=== PATIENT | female | born 1995 | race Caucasian/White ===

== ENCOUNTER 2021-05-28 19:07 | Emergency (ER) | payer OTHER ==
[~2021-05-28] VITALS: Ht 172.7 cm; Wt 83.9 kg
--- NOTE | 2021-05-28 19:30 | NUR ---
BIBRA 878 WITH CC OF DISCOMFORT IN URINATION AND BIZAARE BEHAVIOR V/S CHECKED AND RECORDED NO SOB NOTED SPO2 100% ON ROOM AIR WILL CONT TO MONITOR
--- NOTE | 2021-05-28 20:02 | NUR ---
URINE COLLECTED AND SENT TO LAB.
[2021-05-28 20:28] LABS: BILIRUBIN,URINE NEGATIVE (NEGATIVE); COLOR,URINE YELLOW (YELLOW); LEUKOCYTE ESTERASE ,URINE SMALL (NEGATIVE); NITRITE, URINE NEGATIVE (NEGATIVE); PH,URINE 6.5 (5.0-8.0); PROTEIN,URINE 30 mg/dl (NEGATIVE); UGLUCOSE NEGATIVE (NEGATIVE); UROBILINOGEN,URINE 0.2 EU/dL (0.2)
[2021-05-28 20:37] LABS: BACTERIA,URINE None seen /HPF (None Seen); HYALINE CASTS, URINE Few /LPF (None Seen); RBC,URINE 0-2 /HPF (0-2); SQUAMOUS EPITHELIAL CELL,UR Few /HPF (None Seen); URINE AMORPHOUS URATE Few /HPF (None Seen)
[2021-05-28 22:05] LABS: BASOPHILS # (AUTO) 0.1 K/uL (0.0-0.2); BASOPHILS % (AUTO) 0.4 % (0.0-2.0); EOSINOPHILS % (AUTO) 0.2 % (0.0-6.0); HEMATOCRIT 42 % (33-45); HEMOGLOBIN 14.2 g/dL (11.5-14.8); LYMPHOCYTES # (AUTO) 1.9 K/uL (0.8-4.8); LYMPHOCYTES % (AUTO) 13.4 % (20.0-44.0); MEAN CORPUSCULAR HGB CONC 34 g/dl (31.0-36.0); MEAN CORPUSCULAR VOLUME 89 fL (82-100); MONOCYTES # (AUTO) 1.1 K/uL (0.1-1.30); MONOCYTES % (AUTO) 7.9 % (2.0-12.0); NEUTROPHILS # (AUTO) 10.9 K/uL (1.8-8.9); NEUTROPHILS % (AUTO) 78.1 % (43.0-81.0); PLATELET COUNT (AUTO) 292 K/uL (150-450); RED BLOOD CELL COUNT(AUTO) 4.75 MIL/uL (4.0-5.2); WHITE BLOOD COUNT (AUTO) 13.9 K/uL (4.3-11.0)
[2021-05-28 22:19] LABS: CALCIUM, SERUM 9.5 mg/dL (8.5-10.1); CREATININE 0.8 mg/dL (0.6-1.3); POTASSIUM 2.9 mmol/L (3.5-5.1)
[2021-05-28 22:21] LABS: ACETAMINOPHEN < 2 ug/ml (10-30); ALCOHOL, BLOOD < 3 mg/dL (0-0)
[2021-05-28 22:24] LABS: BILIRUBIN,DIRECT 0.1 mg/dL (0.0-0.2); BILIRUBIN,TOTAL 0.3 mg/dL (0.2-1.0); TOTAL PROTEIN, SERUM 7.8 g/dL (6.4-8.2)
[2021-05-28] MEDS ORDERED: CEPHALEXIN MONOHYDRATE 500 MG CAPSULE PO ONE ×2 (22:30→22:36)
[2021-05-28] MEDS ORDERED: POTASSIUM CHLORIDE 20 MEQ TAB.PRT.SR PO ONE ×2 (22:30→22:36)
[2021-05-28] MEDS ORDERED: CEPH500C2 PO (23:21)
--- NOTE | 2021-05-28 23:26 | NUR ---
COVID SWAB DONE AND SENT TO LAB
--- NOTE | 2021-05-28 23:45 | NUR ---
DORR CRISIS TEAM AT BEDSIDE FOR EVAL.
[2021-05-29] MEDS ORDERED: OLANZAPINE 10 MG VIAL IM ONE ×2 (00:09→00:30)
--- NOTE | 2021-05-29 00:55 | NUR ---
ANAI GUEVARA ([facility]) [phone]
--- NOTE | 2021-05-29 08:59 | NUR ---
SERVICE ADMINISTRATOR "WILL SEE THE PATIENT AFTER THE MEETING".
--- NOTE | 2021-05-29 09:17 | NUR ---
clinicals faxed to Mark Hou at [phone] as requested by Laurie
--- NOTE | 2021-05-29 09:46 | NUR ---
FAXED CLINICALS TO [facility] IN [place] AT [phone] PER SILKE
--- NOTE | 2021-05-29 09:49 | NUR ---
SPOKE TO PATIENTS KB ANAI AND SHE REQUESTED TO BE NOTIFIED IF PT WAS TO BE RELEASED OR TRANSFERRED TO ANOTHER FACILITY
--- NOTE | 2021-05-29 11:59 | NUR ---
SW called [facility] in [place] and spoke to intake and they stated they have no opne beds for today.
[2021-05-29 12:00] VITALS: BP 134/75
--- NOTE | 2021-05-29 12:01 | NUR ---
KOURTNEY called [facility] tel:[phone] and intake stated they have no bed availability for today.
--- NOTE | 2021-05-29 12:22 | NUR ---
KOURTNEY ENAMORADO AT BEDSIDE TALKING TO THE PATIENT
--- NOTE | 2021-05-29 12:42 | NUR ---
SS Note: SW met with pt at bedside. The pt. is a 25 year old female on a 5150 hold for DTS.Per EMR. pt. is currently . Pt. is alert & oriented x 3 and bizarre. Pt. appears unkempt, with dysphoric mood & flat affect. Pt. has slow low speech. Pt. is confused at times. Pt. is manipulative and providing contradictory information. Pt. stated she would like to be discharged to home. Pt. states she "lives here at the hospital" and stated she cannot return home with her mother. Pt. stated she has intermittent SI and visual / auditory halucinations. Pt. denies HI. SW explored pt.'s drug and alcohol use. Pt. stated she drinks alcohol 2x/ week and uses drugs "sometimes". Pt. presents guarded and did not want to specify drug use. Pt. tox screen shows Cannabinoid use. KOURTNEY provided education to pt. regardign if pt.'s child test positive fro drugs upon delivery, the child may be taken away from her custody. Pt. expressed understanding and stated, all the hard drug use was done prior to this . KOURTNEY provided pt. with AND RESOURCES and pt. accepted them. KOURTNEY also provided pt. with addiction, and mental health resources and pt. accepted them. KOURTNEY discussed with Dr. Zapien. KOURTNEY khalil insurance and benefits clerkLouise [phone] to discuss pt.'s current behavior, pending psych admission and stabilization through medication. Ivonne stated she will call Dr. Michele to consult regarding medicating pt. and will discuss with ED MD. Noted. SW will remain available. /INFANT CARE: [facility] Support [place] office [phone] [phone] Care.com - all types of support [facility] Home [phone] PREPARED CHILDBIRTH: [phone] [facility] SUBSTANCE ABUSE SUPPORT: [phone] Via [phone] [facility] MATERNITY HOUSING: [place] (teens) 18 years + [phone] R[facility]hi[facility] [phone] [facility] [phone] PARENTING CLASSES: [facility] [address] [phone] Friends of the [phone] [phone] [place] [facility] [place] Program Child/Family Center in [facility] PATERNITY TESTING: [phone] [facility] [phone] [facility] Parvez. [facility] Energy Operations Vice President Offices www.Multistory Learning.Novaliq ADOPTION: [phone] Adoption Network Law [place] [facility] Services [facility] Family [facility] Tamms [phone] Iesha Barnes Adoption BREAST FEEDING: [phone] La Leche [phone] Nursing Meat Pumper - Mobile Service The Pump Connection [facility] BOARDING SPECIALIST: Child Resource Center [facility] Preschool LAUP.net [facility] CHILD SUPPORT: [facility] www.cssd.[facility].gov [phone] www.childsup.[place].gov OTHER RESOURCES: MEND - provides food, clothing, furniture, medical care, etc., to families and children living in the [facility]. [facility] Family [facility] Family Rescue Cent. Safety Belt USA- car seat discounts Multiples of Ade Support www.nomotc.org Food Pantries www.Cro Yachting.org www.Beauty Worksty.org Cord Banking: http://americanpreVirtustreamancy.org/nlcug-bhd-fduxw/mtri-ywftw-jliaymx/ ADDICTION RESOURCES For Drugs and Alcohol [facility] Substance Abuse Helpline([place])-[facility] Outpatient treatment, residential treatment, recovery support for youth and adults [facility] www.NovusfaPinevio [facility] Teen programs for drug/alcohol education and support [facility] [place]. Program for adults, sliding scale provides support and education Mere Exogenesis www.Any+Times.org [place]; Outpatient/residential treatment programs; transition to sober living Cri-Help www.cri-help.org [place]; Outpatient and residential treatment programs; transition to sober living I-ADARP Inter Agency Drug Abuse Recovery Jesus Gomes; Outpatient education and supportive programs for teens and adults [facility] www.oasiswomensrecovery.org [place]; Residential treatment and work program for females only Carmel Lodi www.phocity hospitalxwashburn.org [place]: Outpatient/residential treatment program for teens and young adults [facility] [place] www.[facility].org [place] Detox, inpatient, outpatient for adults and youth [facility]'s [place], [facility]. [place]; Outpatient programs and referrals to community residential programs. Alcoholics Anonymous -sfv information and meeting and schedules www.aa-intergroup.org Wc-Gwbv-Hnecjmt https://al-anon.org/ [place] support groups for family of alcoholics. Marijuana Anonymous www.madistrict6.org -SFV listing of meetings Narcotics Anonymous www.na.org SOBER LIVING RESOURCES The Sober Living Network www.soberhouIncentOne.PlusBlue Solutions A non-profit agency that provides resources to recovery and sober living homes throughout [place], [place], [facility] Men's Sober Living Homes: A Work in Progress, Jennifer [facility] Recovery Advocates, [place] [facility] Women's Sober Living Homes: [facility] x [phone] [place], [place] [facility] Coed Sober Living Homes: [facility] Counseling--Outpatient [facility] [address] [place] [address] (Specializes in in-depth psychotherapy for emotional distress: anxiety, depression, interpersonal conflicts, life transitions, childhood abuse) [facility] [address] [place] [address] (Assist with solving problem marital difficulties, separation & divorce, aging parents, & grief, chronic & terminal illness) [facility] [address] [place] [address] (Deal with loss & grief, anxiety, marital difficulties) Homebound/Mental Health Services [address] [place], [place] [address] (Provide in-home mental services to people who are incapable of leaving their homes) Organization for Needs of the Elderly Senior Service/Resource Center [address] [place] [address] [facility] [address] [place] [address] Mental Health Services Bree Ko [address] [place] [address] Services: Outpatient therapy for children, teens, young adults, adults, older adults, and families; Psychiatric services, medication support Psychiatric Outpatient Services [facility] Partial Hospitalization and Intensive Outpatient Program (Managed Care and [place] Only)[address] [facility] [phone] [facility] Partial Hospitalization and Outpatient [id number] [facility] [address] [place], [place] [phone] [facility] Partial Hospitalization and Outpatient Lhaxclr8285 [place], [place] [phone] [facility] Mental Health [place] [id number] [facility] [address] [place], [place] [phone] [facility] Partial Hospitalization and Outpatient [id number] [place], [phone] Crisis and Hotline Telephone Numbers 24-Hour service unless stated [place] Crisis Hotlines: [facility] Mental Health/Crisis Line........628.555.6856 Suicide Prevention Center (24 Hours).......647.373.9289 Suicide Prevention Crisis Center.......713.311.4883 (24 Hours) Assaults Against Women Hotline.........716.484.4368 (24 Hours -- [facility]) Women and Children Crisis Senior Living...........273.171.2893 (24 Hours) Child Abuse Hotline............917.898.6344 [facility] Rape Treatment Center (24 Hours)..........[phone] Alcoholics Anonymous (24 Hours)..........[phone] Cocaine Anonymous (24 Hours)............188.779.1098 Narcotics Anonymous (24 Hours)..........[phone] Edie Fleming [facility] Urgent Care [facility] [address], [place] [address]
--- NOTE | 2021-05-29 13:36 | NUR ---
DR. ADAIR AT BEDSIDE FOR EVAL.
--- NOTE | 2021-05-29 13:46 | NUR ---
SPOKE TO MAXINE BECERRA [facility], WILL PRESENT PT CASE AND CALL BACK
--- NOTE | 2021-05-29 13:50 | NUR ---
PATIENT A/OX4, EATING, NO DISTRESS NOTED. NEEDS ATTENDED.
--- NOTE | 2021-05-29 13:57 | NUR ---
[facility],ACCEPTED BY DR VELEZ, 2A,[address] [facility] [address], REPORT TO [phone]
--- NOTE | 2021-05-29 14:07 | NUR ---
[facility] CALLED, REQUESTED FEMALE ATTENDENT, ETA 60 MINS.
--- NOTE | 2021-05-29 15:30 | NUR ---
REPORT GIVEN TO DIRECTOR CORPORATE SECURITY. PATIENT ALERT AND ORIENTED. NO DISTRESS NOTED. NEEDS ATTENDED.
--- NOTE | 2021-05-29 15:48 | NUR ---
WHILE PATIENT IS BEING TRANSPORTED TO THE [facility], 2 INSTRUMENTATION AND CONTROL TECHNICIAN AT BEDSIDE. PATIENT RAN THROUGH THE EMERGENCY DOOR. 2 ER STAFF RAN AFTER THE PATIENT.
--- NOTE | 2021-05-29 16:05 | NUR ---
PATIENT WAS FOUND AND BROUGHT TO ED, TRANSFERRED TO [facility] AND LEFT THE FACILITY IN STABLE CONDITION. BELONGINGS ENDORSED.
== END 2021-05-29 15:38 ==
LOC: ER 19:12
DX: O99.341 Other mental disorders complicating pregnancy, first trimester (principal); F53.1 Puerperal psychosis; O23.41 Unspecified infection of urinary tract in pregnancy, first trimester; N39.0 Urinary tract infection, site not specified; Z20.822 Contact with and (suspected) exposure to COVID-19; Z3A.01 Less than 8 weeks gestation of pregnancy
CPT/HCPCS: 36415; 76805; 80048; 80076; 80143; 80307; 80320; 81001; 83735; 84702; 84703; 85025; 87086; 87426; 96372; 99285; C9803; J3490; G0480